=== PATIENT | female | born 1995 | race Caucasian/White ===

== ENCOUNTER 2023-02-04 14:17 | Emergency (ER) | payer BC, SELFPAY ==
--- NOTE | ~2023-02-04 | XR_ITS ---
EXAM: XR foot LT min 3V DATE: 02/04/2023 14:41 HISTORY: LEFT FOOT PAIN , INJURY . COMPARISON: None available. FINDINGS: Normal mineralization. No fracture or dislocation. No lytic or blastic lesion. Os navicula ris. Joint spaces are maintained. No erosion or periosteal change. Soft tissue swelling over the dors um of the foot. IMPRESSION: No acute osseous finding in the left foot. Reviewed, dictated and finalized at location K.
[2023-02-04 14:25] VITALS: BP 118/82; PULSE 82; RESP 16; TEMP 36.4; O2SAT 100
--- NOTE | 2023-02-04 14:25 | ED.LOWEXIN ---
HPI - Extremity Injury (Lower) General Chief Complaint: Extremity Injury, Lower Stated Complaint: Left foot injury Source: patient and RN notes reviewed Limitations: no limitations History of Present Illness HPI Narrative: Patient is a 27-year-old female who presents to the [facility] with complaints of left foot pain since yesterday. Patient states that yesterday around 5:00pm, she was helping her load a car onto a trailer when the trailer ramp slid out and hit her in the left foot. She reports increasing swelling to the left foot. She has full range of motion of the left ankle, but reports discomfort performing range of motion with the foot. THere is notable swelling to the dorsal aspect of the left foot with bruising. Sensation is intact and she denies numbness. Pulses are present. Related Data Home Medications Medication Instructions Recorded Confirmed sertraline 25 mg tablet 25 mg PO DAILY 02/04/23 02/04/23 Allergies Allergy/AdvReac Type Severity Reaction Status Date / Time No Known Drug Allergies Allergy Unknown Verified 05/13/15 15:56 Review of Systems Review of Systems: CONSTITUTIONAL: Denies fever, chills, or sweats. EYES: Denies visual changes, redness, or discharge. ENT: Denies otalgia and sore throat CARDIOVASCULAR: Denies chest pain, palpitations, or edema. RESPIRATORY: Denies cough or dyspnea. GASTROINTESTINAL: Denies abdominal pain, nausea, vomiting, or diarrhea. GENITOURINARY: Denies dysuria or hematuria. SKIN: Denies rash or itching. MUSCULOSKELETAL: Denies back pain or myalgia. Reports left foot pain and swelling. NEUROLOGIC: Denies headache, numbness, or weakness. Pertinent positives per HPI. PMFSH Comments At the time of my signature, I reviewed and agree with the nursing past medical, surgical, social, and family history. There is no relevant family history pertinent to the patient complaint. Exam Narrative: GENERAL: This is a well-nourished, well-developed patient, in no apparent distress. HEAD: normocephalic, atraumatic. EYES: PERRL. Sclera clear/white. Vision is grossly intact. EARS: External ears normal, auditory canals clear and without drainage, TMs normal without perforation. Hearing grossly intact. NOSE: External nose normal with no obvious nasal discharge, nares without redness, no rhinorrhea. THROAT: Mucous membranes moist, posterior pharynx clear. NECK: Neck supple, non-tender without lymphadenopathy, masses or thyromegaly. CARDIOVASCULAR: Regular rate and rhythm without murmurs, gallops, or rubs. RESPIRATORY: Clear to auscultation. Breath sounds equal bilaterally. No wheezes, rales, or rhonchi. GASTROINTESTINAL: Abdomen soft, non-tender, nondistended. Bowel sounds are active. No hepato-splenomegaly, or palpable masses. No guarding. SKIN: warm, intact with no suspicious lesions or rash, good texture and turgor. NEURO: awake, alert, and oriented to person, place and time. There were no obvious focal neurologic abnormalities. EXTREMITIES: No clubbing, cyanosis, or edema. Left foot tenderness with bruising and swelling noted to the dorsal aspect of the left foot. Limited ROM of the foot. Sensation intact. BACK: Nontender without deformity or crepitance. No flank tenderness. Course Course Level of Care: Express Care Visit Vital Signs Vital signs: Vital Signs Temperature 97.6 F 02/04/23 14:25 Pulse Rate 82 02/04/23 14:25 Respiratory Rate 16 02/04/23 14:25 Blood Pressure 118/82 02/04/23 14:25 Pulse Oximetry 100 02/04/23 14:25 Oxygen Delivery Room Air 02/04/23 14:25 Temperature 97.6 F 02/04/23 14:25 Pulse Rate 82 02/04/23 14:25 Respiratory Rate 16 02/04/23 14:25 Blood Pressure 118/82 02/04/23 14:25 Pulse Oximetry 100 02/04/23 14:25 Oxygen Delivery Room Air 02/04/23 14:25 Reviewed MDM - Extremity Injury (Lower) MDM Narrative Medical decision making narrative: Ice to the area 15-20 minutes 4-6 times a day for two to thr
== END 2023-02-04 15:24 | disposition home or self-care (01) ==
PROVIDERS: Emergency Provider Nurse Practitioner
DX: S90.32XA Contusion of left foot, initial encounter (principal); W22.8XXA Striking against or struck by other objects, initial encounter
CPT/HCPCS: 73630; 99203; G0463